=== PATIENT | female | born 1985 | race Caucasian/White ===

== ENCOUNTER → 2017-10-06 | Outpatient (CLI) | payer BC ==
--- NOTE | 2017-10-06 10:52 | CPEKG ---
Heart Rate: 71 RR Interval: 845 P-R Interval: 168 QRSD Interval: 98 QT Interval: 416 QTC Interval: 453 P [place]: 45 QRS [place]: 50 T Wave [place]: 18 EKG Severity - NORMAL ECG - EKG Impression: SINUS RHYTHM Electronically Signed By: Elbert Jimenez 06-Oct-2017 13:52:44
== END ==
LOC: FCP 10:27
PROVIDERS: ATTEND Psychiatry & Neurology Psychiatry
DX: Z01.810 Encounter for preprocedural cardiovascular examination (principal)

== ENCOUNTER 2017-11-14 10:11 | Inpatient (IN) | payer BC ==
--- NOTE | 2017-11-14 10:44 | EDPHY ---
H & P Stated Complaint: mental health eval - Personal History LMP (Females 10-55): IUD In Place Current Tetanus Diphtheria and Acellular Pertussis (TDAP): Unsure - Medical/Surgical History Hx Asthma: No Hx Chronic Respiratory Disease: No Hx Diabetes: No Hx Cardiac Disease: No Hx Renal Disease: No Hx Cirrhosis: No Hx Alcoholism: No Hx HIV/AIDS: No Hx Splenectomy or Spleen Trauma: No Other PMH: ECT therapy, depression/anxiety/bipolar, Endometriosis - Social History Smoking Status: Never smoked Time Seen by Provider: 11/14/17 10:19 HPI/ROS: CHIEF COMPLAINT: Depression, suicidal ideation HISTORY OF PRESENT ILLNESS: 32-year-old female history of depression, prior history of ECT, in the ER voluntarily with her complaining of progressive depression and suicidal ideation with plan to shoot herself. She has been performing online research and has been researching guns. She denies self-injury. Denies alcohol or drug use. She was in contact with her psychiatrist and therapist this morning they recommend she go to the ER for evaluation, states that the they recommended inpatient evaluation. PRIMARY CARE PROVIDER: REVIEW OF SYSTEMS: A ten point review of systems was performed and is negative with the exception of the items mentioned in the HPI PAST MEDICAL & SURGICAL HISTORY: Depression SOCIAL HISTORY:Nonsmoker PHYSICAL EXAM (Prior to examination, patient consented to physical exam, hands were washed and my usual and customary physical exam procedures followed) 1) GENERAL: Well-developed, well-nourished, alert and oriented. Appears to be in no acute distress. Withdrawn tearful 2) HEAD: Normocephalic, atraumatic 3) HEENT: Pupils equal, round, reactive to light bilaterally. Sclera anicteric. 4) NECK: Full range of motion, no meningeal signs. 5) LUNGS: Clear auscultation bilaterally, no wheezes, no rhonchi, no retractions. 6) HEART: Regular rate and rhythm, no murmur, no heave, no gallop. 7) ABDOMEN: No guarding, no rebound, no focal tenderness, negative McBurney's, negative Cano's, negative Rovsing's, negative peritoneal sign, 8) MUSCULOSKELETAL: Moving all extremities, no focal areas of tenderness, no obvious trauma. No peripheral edema or discoloration. 9) BACK: No CVA tenderness, no midline vertebral tenderness, no fluctuance, no step-off, no obvious trauma, no visual or palpable abnormality. 10) SKIN: No rash, no petechiae. 11) Psychiatric: Patient is oriented X 3, there is no agitation. Tearful. Depressed flat affect. DIFFERENTIAL DIAGNOSIS: In no particular include but limited to suicidal ideation, homicidal ideation, depression (Cuauhtemoc Aragon) Constitutional: Initial Vital Signs Temperature (C) 36.4 C 11/14/17 10:12 Heart Rate 93 11/14/17 10:12 Respiratory Rate 20 11/14/17 10:12 Blood Pressure 141/91 H 11/14/17 10:12 O2 Sat (%) 99 11/14/17 10:12 O2 Delivery Mode Room Air Allergies/Adverse Reactions: IV Contrast dye Allergy (Uncoded 09/19/17 15:06) Home Medications: Medication Instructions Recorded Cholecalciferol Vit D3 [Vitamin D3 5,000 units PO DAILY 09/19/17 (*)] Zonisamide [Zonegran 100MG (*)] 400 mg PO HS 09/19/17 lamoTRIgine [Lamictal] 400 mg PO HS 09/19/17 L-Methylfolate Deplin 15 mg PO DAILY 09/23/17 Multivitamins [Multivitamin (*)] 1 each PO DAILY 09/23/17 Acetaminophen/ASA/Caffeine 1 each PO DAILY PRN 11/14/17 [Excedrin Tablet (*)] Chlordiaz/Clidiniu 5/2.5 [Librax 1 cap PO DAILY PRN 11/14/17 (*)] [place] Carbonate [[place] 300 mg PO BID 11/14/17 Carbonate Tab 300 mg (*)] Ziprasidone HCl [Geodon 40MG (*)] 40 mg PO HS 11/14/17 Medical Decision Making ED Course/Re-evaluation: 10:43 a.m.: In consultation with secondary supervising physician Dr. Mt Barraza, think the patient meets criteria for M1 hold, she is experiencing active suicidal ideations. 1:41 p.m.: Patient has been evaluated mental health medical historian, plan will be admission [address] Robert Mares admitting physician (Mahesh,D Florinda) I assumed care of this pt at 1pm, dispo pending. (Sigrid Putnam) - Data Points Laboratory Results: Laboratory Results 11/14/17 10:50 11/14/17 11:00 11/14/17 11/14/17 11/14/17 11:00 10:50 10:50 WBC RBC Hgb Hct MCV MCH MCHC RDW Plt Count MPV Neut % (Auto) Lymph % (Auto) [place] % (Auto) Eos % (Auto) Baso % (Auto) Nucleat RBC Rel Count Absolute Neuts (auto) Absolute Lymphs (auto) Absolute Monos (auto) Absolute Eos (auto) Absolute Basos (auto) Absolute Nucleated RBC Immature Gran % Immature Gran # Sodium 143 mEq/L mEq/L (135-145) Potassium 3.3 mEq/L L mEq/L (3.5-5.2) Chloride 108 mEq/L mEq/L (97-110) Carbon Dioxide 22 mEq/l mEq/l (22-31) Anion Gap 13 mEq/L mEq/L (8-16) BUN 10 mg/dL mg/dL (7-23) Creatinine 0.8 mg/dL mg/dL (0.6-1.0) Estimated GFR > 60 Glucose 75 mg/dL mg/dL (70-100) Calcium 10.1 mg/dL mg/dL (8.5-10.4) Beta HCG, Qual NEGATIVE Urine Opiates Screen NEGATIVE (NEGATIVE) Urine Barbiturates NEGATIVE (NEGATIVE) Ur Phencyclidine Scrn NEGATIVE (NEGATIVE) Ur Amphetamine Screen NEGATIVE (NEGATIVE) U Benzodiazepines Scrn NEGATIVE (NEGATIVE) [place] 0.3 mEq/L L mEq/L (0.6-1.2) Urine Cocaine Screen NEGATIVE (NEGATIVE) U Marijuana (THC) Screen NEGATIVE (NEGATIVE) 11/14/17 10:50 WBC 10.73 10^3/uL H 10^3/uL (3.80-9.50) RBC 5.05 10^6/uL 10^6/uL (4.18-5.33) Hgb 15.9 g/dL g/dL (12.6-16.3) Hct 46.1 % % (38.0-47.0) MCV 91.3 fL fL (81.5-99.8) MCH 31.5 pg pg (27.9-34.1) MCHC 34.5 g/dL g/dL (32.4-36.7) RDW 13.2 % % (11.5-15.2) Plt Count 295 10^3/uL 10^3/uL (150-400) MPV 10.1 fL fL (8.7-11.7) Neut % (Auto) 65.8 % % (39.3-74.2) Lymph % (Auto) 22.6 % % (15.0-45.0) [place] % (Auto) 7.4 % % (4.5-13.0) Eos % (Auto) 2.9 % % (0.6-7.6) Baso % (Auto) 0.5 % % (0.3-1.7) Nucleat RBC Rel Count 0.0 % % (0.0-0.2) Absolute Neuts (auto) 7.06 10^3/uL H 10^3/uL (1.70-6.50) Absolute Lymphs (auto) 2.43 10^3/uL 10^3/uL (1.00-3.00) Absolute Monos (auto) 0.79 10^3/uL 10^3/uL (0.30-0.80) Absolute Eos (auto) 0.31 10^3/uL 10^3/uL (0.03-0.40) Absolute Basos (auto) 0.05 10^3/uL 10^3/uL (0.02-0.10) Absolute Nucleated RBC 0.00 10^3/uL 10^3/uL (0-0.01) Immature Gran % 0.8 % % (0.0-1.1) Immature Gran # 0.09 10^3/uL 10^3/uL (0.00-0.10) Sodium Potassium Chloride Carbon Dioxide Anion Gap BUN Creatinine Estimated GFR Glucose Calcium Beta HCG, Qual Urine Opiates Screen Urine Barbiturates Ur Phencyclidine Scrn Ur Amphetamine Screen U Benzodiazepines Scrn [place] Urine Cocaine Screen U Marijuana (THC) Screen Departure - Departure Disposition: [facility] IP Clinical Impression: Suicidal ideation, Severe major depression Condition: Fair Referrals: NONE *PRIMARY CARE P,. [Primary Care Provider] - As per Instructions
[2017-11-14 11:24] LABS: PLATELET COUNT 295 10^3/uL (150-400)
[2017-11-14] MEDS ORDERED: MAGNESIUM HYDROXIDE 30 ML UDCUP PO PRN (17:04)
[2017-11-14] MEDS ORDERED: MAG HYDROX/AL HYDROX/SIMETH 30 ML UDCUP PO PRN (17:04)
[2017-11-14] MEDS ORDERED: NICOTINE POLACRILEX 2 MG GUM B PRN (17:04)
[2017-11-14] MEDS: lamoTRIgine 100 MG TAB PO SCH ×2 (20:08→20:10)
[2017-11-14] MEDS: LITHIUM CARBONATE 300 MG TAB PO SCH (20:08)
[2017-11-14] MEDS: ZONISAMIDE 100 MG CAP PO SCH (20:45)
[2017-11-14] MEDS ORDERED: ZIPRASIDONE HCL 40 MG CAP PO SCH (21:00)
[2017-11-14] MEDS: ACETAMINOPHEN 325 MG TAB PO PRN (21:52)
[2017-11-15] MEDS: ACETAMINOPHEN 325 MG TAB PO PRN ×4 (04:50→23:51)
[2017-11-15] MEDS: CHOLECALCIFEROL VIT D3 1,000 UNITS TAB PO SCH (08:26)
[2017-11-15] MEDS: LITHIUM CARBONATE 300 MG TAB PO SCH ×2 (08:26→20:01)
[2017-11-15] MEDS ORDERED: [UNRECOGNIZED DRUG - OTHER] PO SCH (09:00)
[2017-11-15] MEDS: [UNRECOGNIZED DRUG - OTHER] PO SCH (12:28)
--- NOTE | 2017-11-15 16:09 | SOAPPROG ---
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 hx of IBS, absence szs, occasional migraine MOTA Presents with incr depr sxs, +SI and plan/intent to harm self by shooting self; researched guns online, and attempted to access gun safe at home after locating keys. States this is the closest she has come to suicide attempt, altho struggling with SI daily recently. Did communicate with outpt psychiatrist who recommended inpt treatment for med reassessment, eval, stabilization and safety. Pt not wanting to consider ECT again. Admitted on M-1 to 3N Admission assessment done, pt interviewed at length and avail records reviewed. Pt continues feeling profoundly depressed, often tearful throughout interview. + SI but feels she can talk to staff if unable to maintain safety or having incr intensity of SI. Also reports continued occasional AH/VH. c/o insomnia and allergy sxs presently Is agreeable to try medication adjustments but not hopeful that anything will be beneficial. Has had recent outpt med changes on 10/31/[address] Moon: Li 600mg BID decr to 300mg BID b/c pt reported experiencing incr in AH/VH she thought related to this Lamictal was increased from 300mg qhs to 400mg qhs same day. Started Geodon 40mg HS in early October. Plan: cont on M-1 place on suicide precautions SP-1, safety prec requests to not take all meds at AM and HS, would like divided to lessen any adverse GI effects - will dose Lamictal 400mg qhs, and Zonegran 400mg qhs [place] 300mg and Geodon 40mg qpm with dinner Deplin 15mg am, Li 300mg qam Add Benadryl 25mg qhs prn insomnia,allergies,any EPS Discussed options for med adjustments, including incr Li to total 900 instead of 1200mg, also incr Geodon to 60mg or more as tolerated/indicated Pt reports physically not feeling well with her allergies. Also occasional nausea. Accepts addition of Benadryl tonight, will divide HS meds to PM/HS and f /u in AM Admission dictation to follow. Objective: Vital Signs Temp Pulse Resp BP Pulse Ox 36.3 C 40 L 12 113/62 96 11/15/17 06:00 11/15/17 06:00 11/15/17 06:00 11/15/17 06:00 11/15/17 06:00 - Time Spent With Patient Time Spent With Patient: 60min - Pending Discharge Pending Discharge Within 24 Hours: No Pending Discharge Within 48 Hours: No ICD10 Worksheet Patient Problems: Problems Problem Status Onset Severe major depression Acute Suicidal ideation Acute C. difficile diarrhea Acute 03/23/16
[2017-11-15] MEDS ORDERED: ZIPRASIDONE HCL 40 MG CAP PO SCH (17:45)
[2017-11-15] MEDS: ZIPRASIDONE HCL 40 MG CAP PO SCH (20:01)
[2017-11-15] MEDS: lamoTRIgine 100 MG TAB PO SCH (20:06)
[2017-11-15] MEDS: ZONISAMIDE 100 MG CAP PO SCH (20:06)
[2017-11-15] MEDS: diphenhydrAMINE 25 MG CAP PO PRN (20:07)
[2017-11-15] MEDS: CEPACOL LOZENGE PO PRN (20:07)
[2017-11-16] MEDS: ACETAMINOPHEN 325 MG TAB PO PRN ×3 (07:25→23:47)
[2017-11-16] MEDS: CEPACOL LOZENGE PO PRN ×3 (07:25→23:46)
[2017-11-16] MEDS: CHOLECALCIFEROL VIT D3 1,000 UNITS TAB PO SCH ×3 (08:23→08:25)
[2017-11-16] MEDS: LITHIUM CARBONATE 300 MG TAB PO SCH ×2 (08:26→17:15)
[2017-11-16] MEDS: [UNRECOGNIZED DRUG - OTHER] PO SCH (08:56)
--- NOTE | 2017-11-16 08:59 | GHP ---
[f rep st] HISTORY AND PHYSICAL DATE OF ADMISSION: 11/15/2017 CHIEF COMPLAINT: Severe anxiety. HISTORY OF PRESENT ILLNESS: A 32-year-old female with a history of depression and recent ECT treatme nt, who re-presents with suicidal ideation, depression, anxiety. Upon my interview, patient is denyi ng any headaches, vision changes, chest pain, palpitations, shortness of breath, cough. Takes Met[place]u cil for regular bowel movements, and has been passing nonbloody stools every day. Denies any dysuria . Denies any hematuria. Denies any myalgias, arthralgias, or subjective fevers and chills. She pedraza s endorse being perimenopausal. She has been 8 months without a period, and then recently had a norm al period. Denies any menorrhagia. Does endorse some new acne, and again severe anxiety and depress ion. PAST MEDICAL HISTORY: 1. Depression. 2. Bipolar. SOCIAL HISTORY: Negative for tobacco, alcohol or illicit drugs. FAMILY HISTORY: Positive for diabetes in her sister. REVIEW OF SYSTEMS: A 10-point review of systems is negative with the exception of that reported in t he HPI. PHYSICAL EXAMINATION: VITAL SIGNS: Blood pressure 108/67, heart rate 86, respiratory rate 16, satu rating 97% on room air. GENERAL: This is a healthy-appearing middle-aged female, mildly anxious. HEENT: Exam is notable for moist mucous membranes. Eye exam is negative for any icterus. CARDIAC: Patient has regular rate an d rhythm. No murmurs, gallops, or rubs. PULMONARY: Clear to auscultation bilaterally. GASTROINTES TINAL: Positive bowel sounds. ABDOMEN: Soft and nontender. MUSCULOSKELETAL: Negative for any low er extremity edema. SKIN: Exam is negative for any rashes. NEUROLOGIC: She is alert and oriented x3. PSYCHIATRIC: Has a flat affect and is depressed on my examination. DATA: White count 10.7, hematocrit 46.1, platelets of 295. Creatinine of 0.8, potassium of 3.3, sod ium of 143. EKG, which I personally reviewed and interpreted, shows sinus rhythm, normal axis, nathaly l intervals, with nonspecific ST-T flattening in the precordial leads. ASSESSMENT AND PLAN: This is a 32-year-old female presenting with severe depression and suicidal manju ation. 1. Severe depression patient is status post ECT, representing with severe depression and suicidal id eation. We will defer management to the primary psychiatric team. 2. Perimenopausal. Patient is describing perimenopausal symptoms with stuttering menstrual cycles, acne and mood lability. Would recommend that she see her PCP in the outpatient setting after psychia tric stabilization to discuss potential low-dose hormone replacement therapy. 3. Hypokalemia. The patient's oral intake has been poor, per her report. Will encourage her to marimar e high potassium foods, such as bananas. 4. Prophylaxis. Patient is ambulating. DISPOSITION: Per the primary psychiatric team. I have discussed the case with the agile coach. We will encourage her to take high potassium food s rather than replacing with potassium chloride supplementation. /[id number]/MODL
[2017-11-16] MEDS: ZIPRASIDONE HCL 40 MG CAP PO SCH (17:15)
[2017-11-16] MEDS: ZONISAMIDE 100 MG CAP PO SCH (19:34)
[2017-11-16] MEDS: lamoTRIgine 100 MG TAB PO SCH (19:35)
[2017-11-16] MEDS: diphenhydrAMINE 25 MG CAP PO PRN (19:35)
[2017-11-17] MEDS: LORazepam 0.5 MG TAB PO PRN ×2 (00:39→06:25)
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
[2017-11-17] MEDS: CEPACOL LOZENGE PO PRN ×3 (06:25→17:02)
[2017-11-17] MEDS: [UNRECOGNIZED DRUG - OTHER] PO SCH (08:23)
[2017-11-17] MEDS: ACETAMINOPHEN 325 MG TAB PO PRN ×2 (08:23→17:02)
[2017-11-17] MEDS: CHOLECALCIFEROL VIT D3 1,000 UNITS TAB PO SCH (08:23)
[2017-11-17] MEDS: LITHIUM CARBONATE 300 MG TAB PO SCH (08:23)
--- NOTE | 2017-11-17 10:31 | SOAPPROG ---
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 hx of IBS, absence szs, occasional migraine MOTA Presents with incr depr sxs, +SI and plan/intent to harm self by shooting self; researched guns online, and attempted to access gun safe at home after locating keys. States this is the closest she has come to suicide attempt, altho struggling with SI daily recently. Did communicate with outpt psychiatrist who recommended inpt treatment for med reassessment, eval, stabilization and safety. Pt not wanting to consider ECT again. Admitted on M-1 to 3N 11/15/2017 16:00 Admission assessment done, pt interviewed at length and avail records reviewed. Pt continues feeling profoundly depressed, often tearful throughout interview. + SI but feels she can talk to staff if unable to maintain safety or having incr intensity of SI. Also reports continued occasional AH/VH. c/o insomnia and allergy sxs presently Is agreeable to try medication adjustments but not hopeful that anything will be beneficial. Has had recent outpt med changes on 10/31/[address] Moon: Li 600mg BID decr to 300mg BID b/c pt reported experiencing incr in AH/VH she thought related to this Lamictal was increased from 300mg qhs to 400mg qhs same day. Started Geodon 40mg HS in early October. Plan: cont on M-1 place on suicide precautions SP-1, safety prec requests to not take all meds at AM and HS, would like divided to lessen any adverse GI effects - will dose Lamictal 400mg qhs, and Zonegran 400mg qhs [place] 300mg and Geodon 40mg qpm with dinner Deplin 15mg am, Li 300mg qam Add Benadryl 25mg qhs prn insomnia,allergies,any EPS Discussed options for med adjustments, including incr Li to total 900 instead of 1200mg, also incr Geodon to 60mg or more as tolerated/indicated Pt reports physically not feeling well with her allergies. Also occasional nausea. Accepts addition of Benadryl tonight, will divide HS meds to PM/HS and f /u in AM Admission dictation to follow. 11/16/17 10:31 per staff, pt slept 8hr. low grade temp this AM 99.1F. "allergy" sxs seem to have actually been an evolving URI. pt with congestion, sinus discomfort, mild sore throat. states Benadryl helped URI sxs as well as sleep last night. mood still depressed, "blah", decr conc, feels forgetful. no current AH/VH but still with SI on/off altho currently feels safe on unit. easily tearful. no current ah/vh Home med includes Librax 5/2.5 once daily prn for IBS, up to 3/day. (Librium/ Clidinium). Has not needed any since admission. reviewed med options as discussed yesterday. agreed to lashell Pierson to 60mg this pm for mood/psychosis f/u VS. consider hospitalist consult if worsening sinus sxs/pain r/o infx cont M-1. anticipate pt may sign in vol prn cepacol, prn tylenol, has prn ativan Objective: Late entry VS for 11/16/17 0600 VSS, AF except P104 Vital Signs Temp Pulse Resp BP Pulse Ox 36.5 C 92 16 106/69 95 11/17/17 06:00 11/17/17 06:00 11/17/17 06:00 11/17/17 06:00 11/17/17 06:00 - Time Spent With Patient Time Spent With Patient: 20min - Pending Discharge Pending Discharge Within 24 Hours: No Pending Discharge Within 48 Hours: No ICD10 Worksheet Patient Problems: Problems Problem Status Onset Severe major depression Acute Suicidal ideation Acute C. difficile diarrhea Acute 03/23/16
--- NOTE | 2017-11-17 11:47 | SOAPPROG ---
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 hx of IBS, absence szs, occasional migraine MOTA Presents with incr depr sxs, +SI and plan/intent to harm self by shooting self; researched guns online, and attempted to access gun safe at home after locating keys. States this is the closest she has come to suicide attempt, altho struggling with SI daily recently. Did communicate with outpt psychiatrist who recommended inpt treatment for med reassessment, eval, stabilization and safety. Pt not wanting to consider ECT again. Admitted on M-1 to 3N 11/15/2017 16:00 Admission assessment done, pt interviewed at length and avail records reviewed. Pt continues feeling profoundly depressed, often tearful throughout interview. + SI but feels she can talk to staff if unable to maintain safety or having incr intensity of SI. Also reports continued occasional AH/VH. c/o insomnia and allergy sxs presently Is agreeable to try medication adjustments but not hopeful that anything will be beneficial. Has had recent outpt med changes on 10/31/[address] Moon: Li 600mg BID decr to 300mg BID b/c pt reported experiencing incr in AH/VH she thought related to this Lamictal was increased from 300mg qhs to 400mg qhs same day. Started Geodon 40mg HS in early October. Plan: cont on M-1 place on suicide precautions SP-1, safety prec requests to not take all meds at AM and HS, would like divided to lessen any adverse GI effects - will dose Lamictal 400mg qhs, and Zonegran 400mg qhs [place] 300mg and Geodon 40mg qpm with dinner Deplin 15mg am, Li 300mg qam Add Benadryl 25mg qhs prn insomnia,allergies,any EPS Discussed options for med adjustments, including incr Li to total 900 instead of 1200mg, also incr Geodon to 60mg or more as tolerated/indicated Pt reports physically not feeling well with her allergies. Also occasional nausea. Accepts addition of Benadryl tonight, will divide HS meds to PM/HS and f /u in AM Admission dictation to follow. 11/16/17 10:31 per staff, pt slept 8hr. low grade temp this AM 99.1F. "allergy" sxs seem to have actually been an evolving URI. pt with congestion, sinus discomfort, mild sore throat. states Benadryl helped URI sxs as well as sleep last night. mood still depressed, "blah", decr conc, feels forgetful. no current AH/VH but still with SI on/off altho currently feels safe on unit. easily tearful. no current ah/vh Reviewed med options as discussed yesterday. agreed to incr Geodon to 60mg this pm for mood/psychosis f/u VS. consider hospitalist consult if worsening sinus sxs/pain r/o infx cont M-1. anticipate pt may sign in vol prn cepacol, prn tylenol, has prn ativan 11/17/17 09:25 Slept 7.5hr. Episode of N/V this AM. Not feeling well physically, tired, congested, recent N/V this AM, altho has been AF Slept with Benadryl prn. Requested meds and went to bed early, did not have incr Geodon. Agreeable to both incr [place] [facility] and Geodon today. +SI 01/18. does not feel she can reliably contract for safety if discharged. "I might". Continues to feel depressed, feels as if a burden on her . Became tearful when continued hospitalization discussed, to allow for med changes and safe transition to outpt setting with incr F/U Worried about her insurance not paying. "I don't want to stick my family with another $20K in bills". MSE: calm, cooperative, good EC, nml speech rate/vol, mildly congested. depressed mood, affect congruent. thoughts linear, expressions of hopelessness and concern of being burden on family, no current AH/VH but still occasional gayla at night, +SI currently passive but feels can maintain safety in structured setting, denied thoughts to harm others. i/j- limited. Pt again stated she did not want to f/u with Dr. Padron, and does not want ECT. Discussed options for AM expiration of M-1 today. Pt stated she was only conditionally agreeable to stay voluntarily, if insurance paid, otherwise concerned about $ pressures, altho continues to not feel able to consistently maintain safety if d/cd. Informed of STC, rights, incl to atty, 3rd libertarian notification. States would like notified of STC. PLAN: incr Geodon to 60mg po Qpm cont lamictal 400mg Incr LiCO3 from 300mg bid (level 0.3 [employer]) to 450mg BID start tonight, for mood stabilization/depr Home med list includes Librax 5/2.5 once daily prn for IBS, up to 3/day. ( Librium/Clidinium). Has not needed any since admission. cont prn tylenol, cepacol, HS prn benadryl, has prn ativan which could help w/ nausea. Geodon/Odansetron flagged as potential drug interaction with QTc incr hospitalist input if current URIs worsening, or any sxs of sinus infx placed on STC coordinate f/u with outpt providers, may benefit from IOP once stable for d/c informed cc of pt $/insurance concerns. Objective: Vital Signs Temp Pulse Resp BP Pulse Ox 36.5 C 92 16 106/69 95 11/17/17 06:00 11/17/17 06:00 11/17/17 06:00 11/17/17 06:00 11/17/17 06:00 Medications Generic Name Dose Route Start Last Admin Trade Name Freq PRN Reason Stop Dose Admin Diphenhydramine HCl 25 mg 11/15/17 17:48 11/16/17 19:35 Benadryl PO 05/14/18 17:47 25 mg HS PRN sleep/allergies/EPS Lorazepam 0.5 - 1 mg 11/14/17 17:04 11/17/17 06:25 Ativan PO 05/13/18 17:03 0.5 mg Q6HRS PRN Anxiety, Able to Take PO Miscellaneous Medication 15 mg 11/15/17 09:00 11/17/17 08:23 L-Methylfolate Deplin PO 05/14/18 08:59 15 mg DAILY HOLLY Cholecalciferol 5,000 units 11/15/17 09:00 11/17/17 08:23 Vitamin D PO 05/14/18 08:59 5,000 units DAILY HOLLY Lamotrigine 400 mg 11/14/17 17:15 11/16/17 19:35 Lamictal PO 05/13/18 17:14 [address] [place] [facility] Carbonate 450 mg 11/17/17 21:00 Eskalith Cr PO 05/16/18 20:59 BID HOLLY Ziprasidone 60 mg 11/17/17 17:00 Geodon PO 05/16/18 16:59 DAILY@1700 HOLLY Zonisamide 400 mg 11/14/17 21:00 11/16/17 19:34 Zonegran PO 05/13/18 20:59 400 mg HS HOLLY - Time Spent With Patient Time Spent With Patient: 25min - Pending Discharge Pending Discharge Within 24 Hours: No Pending Discharge Within 48 Hours: No ICD10 Worksheet Patient Problems: Problems Problem Status Onset Severe major depression Acute Suicidal ideation Acute C. difficile diarrhea Acute 03/23/16
--- NOTE | 2017-11-17 13:12 | SOAPPROG ---
SOAP Progress Note Assessment/Plan: Assessment: Pharyngitis. Unlikely Streptococcal but jaclyn test as she's in hospital and contagion would be a concern. Otherwise recommend symptomatic treatment with acetaminophen. Consider decongestant at discretion of psychiatry. 11/17/17 13:10 Subjective: ATSP re sore throat. She says she's had symptoms for about 2 days. Also with head congestion and cough. Has felt chilled but not feverish. Objective: Vital Signs Temp Pulse Resp BP Pulse Ox 36.5 C 92 16 106/69 95 11/17/17 06:00 11/17/17 06:00 11/17/17 06:00 11/17/17 06:00 11/17/17 06:00 Physical Exam - Physical Exam General Appearance: WD/WN, alert, no apparent distress, obese EENT: pharynx normal, No pharyngeal erythema, No tonsillar exudate Neck: non-tender, supple, No lymphadenopathy (R), No lymphadenopathy (L) Respiratory: normal breath sounds, No crackles, No rhonchi, No wheezing ICD10 Worksheet Patient Problems: Problems Problem Status Onset Severe major depression Acute Suicidal ideation Acute C. difficile diarrhea Acute 03/23/16
--- NOTE | 2017-11-17 16:35 | SOAPPROG ---
SOAP Progress Note Assessment/Plan: Assessment: Bipolar NOS, r/o MDD (TRD); r/o PTSD; r/o Borderline PD; Plan: 11/17/17 16:25 11/17/17 16:27 Reviewed writers own initial consult, and ECT records, spoke with Dr Barbosa after reviewing her helpful evaluation, and spoke with Dr Mares and left with Outpt Psych, Bartolo Moon MD to solicit his guidance. Pt has made clear that she does NOT wish to resume ECT, and that she would rather be attended over by another psychiatrist. She was interviewed while she was lying in near position in her hospital bed. No eye contact, often eyes closed, Negativistic in attitude with impov speech, answering questions with one or two word answers. She was not forthcoming with her TC at this time with this quality analyst/technical writer, but she appears both physically ill and profoundly depressed. Her negativism and "help seeking/help rejecting" disposition reflects some CLuster B traits, likely inflammed by mood disorder exacerbation, and will unfortunately conspire to sabotage her stated reason to be admitted: to help her with medication adjustments. I agree with Dr Barbosa' med changes: increase Li and Geodon. I might consider another AAP such as Latuda or Rexulti with mood elevating benefits, if Geodon proves inadequate or poorly tolerated. Await call from Dr Moon. Signed out to Dr Mares who will take over care as of tomorrow. Objective: Vital Signs Temp Pulse Resp BP Pulse Ox 36.5 C 92 16 106/69 95 11/17/17 06:00 11/17/17 06:00 11/17/17 06:00 11/17/17 06:00 11/17/17 06:00 Laboratory Tests 11/14/17 11/15/17 11:00 10:50 Calcium 10.1 TSH 3.280 PTH Intact 23.7 [place] 0.3 L - Time Spent With Patient Time Spent With Patient: 20 ICD10 Worksheet Patient Problems: Problems Problem Status Onset C. difficile diarrhea Acute 03/23/16 Suicidal ideation Acute Severe major depression Acute
[2017-11-17] MEDS: ZIPRASIDONE HCL 20 MG CAP PO SCH (17:40)
[2017-11-17] MEDS: lamoTRIgine 100 MG TAB PO SCH (18:54)
[2017-11-17] MEDS: ZONISAMIDE 100 MG CAP PO SCH (20:02)
[2017-11-17] MEDS: LITHIUM CARBONATE ER 450 MG TAB PO SCH (20:02)
[2017-11-17] MEDS: diphenhydrAMINE 25 MG CAP PO PRN (20:17)
[2017-11-18] MEDS: ACETAMINOPHEN 325 MG TAB PO PRN (01:38)
[2017-11-18] MEDS: LORazepam 0.5 MG TAB PO PRN (01:38)
[2017-11-18] MEDS: [UNRECOGNIZED DRUG - OTHER] PO SCH (08:21)
[2017-11-18] MEDS: LITHIUM CARBONATE ER 450 MG TAB PO SCH ×2 (08:21→20:17)
[2017-11-18] MEDS: CHOLECALCIFEROL VIT D3 1,000 UNITS TAB PO SCH (08:21)
[2017-11-18] MEDS: ZIPRASIDONE HCL 20 MG CAP PO SCH (17:02)
[2017-11-18] MEDS: lamoTRIgine 100 MG TAB PO SCH (20:17)
[2017-11-18] MEDS: ZONISAMIDE 100 MG CAP PO SCH (20:17)
--- NOTE | 2017-11-18 21:43 | SOAPPROG ---
PRINCESS Progress Note Assessment/Plan: Assessment: Plan: 11/18/17 21:43 Mood: Difficult to assess. Clearly psychologically regressed. Obvious help- seeking, help-rejecting bx's. I set limit with her that I will not interview her in her room and that she needs to come to my office if she wishes to review her case. If this continues into tomorrow, will institute "reverse room protocol" to limit regression. [facility] for now. Subjective: Pt seen briefly. She is lying in bed, refuses my request for interview. RN instructed to request pt speak with me and she refused to her as well. She states she doesn't feel well and "doesn't want to get everyone else sick." Staff notes variable presentation today. Upbeat and cheerful earlier. Got up and showered. and then ate a large breakfast. Displayed a notable decline in affect and regressed behaviors when senior insight manager international asked her to participate in milieu activities. After that, she regressed further to lying in bed and refusing interactions. Objective: Vital Signs Temp Pulse Resp BP Pulse Ox 37.0 C 99 16 119/78 97 11/18/17 06:00 11/18/17 06:00 11/18/17 06:00 11/18/17 06:00 11/18/17 06:00 MSE: Lying in bed under sheets. Refuses to sit up or interact. - Time Spent With Patient Time Spent With Patient: 25" ICD10 Worksheet Patient Problems: Problems Problem Status Onset Severe major depression Acute Suicidal ideation Acute C. difficile diarrhea Acute 03/23/16
[2017-11-18] MEDS: CEPACOL LOZENGE PO PRN (22:49)
[2017-11-19] MEDS: LORazepam 0.5 MG TAB PO PRN (01:35)
[2017-11-19] MEDS ORDERED: PROMETHAZINE HCL 25 MG TAB PO ONE (07:15)
[2017-11-19] MEDS: LITHIUM CARBONATE ER 450 MG TAB PO SCH ×2 (07:47→19:42)
[2017-11-19] MEDS: CHOLECALCIFEROL VIT D3 1,000 UNITS TAB PO SCH (07:48)
[2017-11-19] MEDS: [UNRECOGNIZED DRUG - OTHER] PO SCH (07:48)
--- NOTE | 2017-11-19 12:50 | SOAPPROG ---
PRINCESS Progress Note Assessment/Plan: Assessment: Plan: 11/18/17 21:43 Mood: Difficult to assess. Clearly psychologically regressed. Obvious help- seeking, help-rejecting bx's. I set limit with her that I will not interview her in her room and that she needs to come to my office if she wishes to review her case. If this continues into tomorrow, will institute "reverse room protocol" to limit regression. [facility] for now. 11/19/17 12:51 Mood: Remains depressed. Agreeable to titration of Geodon. Will proceed as above. Possible d/c tomorrow if all is well. Subjective: Pt seen, discussed with staff. Chart reviewed again in depth. Pt remains withdrawn, preferring to stay in bed. She states this is only b/c she is tired and doesn't feel well due to viral illness. She states she is no longer suicidal and believes she can go home. I emphasized that we need to see her participate in the therapeutic process. She agrees to this. After reviewing medications, she is agreeable to increasing Geodon to 40mg BID, continue lithium and Lamictal at current doses. Lamictal level is pending and we will draw a lithium level tomorrow. Objective: Vital Signs Temp Pulse Resp BP Pulse Ox 36.6 C 101 H 20 115/70 96 11/19/17 06:00 11/19/17 06:00 11/19/17 06:00 11/19/17 06:00 11/19/17 06:00 MSE: Marginally groomed (for which she apologizes), pleasant and coop. Affect is blunted, stable, approp. Mood is "better." TP linear, goal-directed. TC reveals no psychosis inc: no mention of hallucinations. Denies current SI. - Time Spent With Patient Time Spent With Patient: 35" ICD10 Worksheet Patient Problems: Problems Problem Status Onset Severe major depression Acute Suicidal ideation Acute C. difficile diarrhea Acute 03/23/16
[2017-11-19] MEDS ORDERED: ZIPRASIDONE HCL 20 MG CAP PO ONE (18:00)
[2017-11-19] MEDS: lamoTRIgine 100 MG TAB PO SCH (19:42)
[2017-11-19] MEDS: ZONISAMIDE 100 MG CAP PO SCH (19:42)
[2017-11-20] MEDS: [UNRECOGNIZED DRUG - OTHER] PO SCH (08:50)
[2017-11-20] MEDS: CHOLECALCIFEROL VIT D3 1,000 UNITS TAB PO SCH (08:51)
[2017-11-20] MEDS: LITHIUM CARBONATE ER 450 MG TAB PO SCH (08:52)
[2017-11-20] MEDS ORDERED: ZIPRASIDONE HCL 20 MG CAP PO SCH (09:00)
[2017-11-20] MEDS ORDERED: ZIPRASIDONE HCL 40 MG CAP PO SCH (09:00)
[2017-11-20 12:04] VITALS: BP 130/69
== END 2017-11-20 13:38 | disposition home or self-care (01) | DRG 885 ==
LOC: BBEH 16:25
PROVIDERS: ADMIT Psychiatry & Neurology Psychiatry; ATTEND Psychiatry & Neurology Psychiatry
DX: F31.5 Bipolar disorder, current episode depressed, severe, with psychotic features (principal); R45.851 Suicidal ideations; E87.6 Hypokalemia
CPT/HCPCS: 80175-90; 80305; 82607-90